=== PATIENT | female | born 1980 | race Caucasian/White ===

== ENCOUNTER 2018-10-15 20:14 | Inpatient (IN) | payer BC ==
[~2018-10-15] VITALS: Ht 157.5 cm; Wt 62.1 kg
[2018-10-15 20:27] VITALS: BP_SYST 118
[2018-10-15 21:06] LABS: BASOPHILS # (AUTO) 0.1 K/uL (0.0-0.2); BASOPHILS % (AUTO) 0.5 % (0.0-2.0); EOSINOPHILS # (AUTO) 0.1 K/uL (0.0-0.4); EOSINOPHILS % (AUTO) 0.5 % (0.0-4.0); HEMATOCRIT 39.9 % (36-48); HEMOGLOBIN 13.2 g/dL (12.0-16.0); LYMPHOCYTES # (AUTO) 3.9 K/uL (1.0-5.5); LYMPHOCYTES % (AUTO) 31.2 % (20.5-51.5); MEAN CORPUSCULAR HEMOGLOBIN 32 pg (27-31); MEAN CORPUSCULAR HGB CONC 33 % (32-36); MEAN CORPUSCULAR VOLUME 96 fL (79.0-98.0); MONOCYTES # (AUTO) 1.2 K/uL (0.0-1.0); MONOCYTES % (AUTO) 9.2 % (1.7-9.3); NEUTROPHILS # (AUTO) 7.4 K/uL (1.8-7.7); NEUTROPHILS % (AUTO) 58.6 % (40.0-70.0); PLATELET COUNT (AUTO) 325 K/uL (130-430); RED BLOOD CELL COUNT(AUTO) 4.17 MIL/uL (4.2-6.2); RED CELL DISTRIBUTION WIDTH 13.9 % (9.0-15.0); WHITE BLOOD COUNT (AUTO) 12.6 K/uL (4.8-10.8)
[2018-10-15 21:15] LABS: CALCIUM 8.8 mg/dL (8.4-11.0); CREATININE 0.82 mg/dL (0.55-1.30); POTASSIUM 3.1 mmol/L (3.5-5.1)
[2018-10-15 21:20] LABS: ALBUMIN 3.8 g/dL (3.4-4.8); TOTAL BILIRUBIN 0.6 mg/dL (0.0-1.0)
[2018-10-15] MEDS ORDERED: ONDANSETRON HCL 4 MG/2 ML VIAL IVP ONE (22:00)
[2018-10-15] MEDS ORDERED: NACL 0.9% 1,000 ML IV ONE (22:00)
[2018-10-15 22:41] LABS: BILIRUBIN,URINE NEGATIVE (NEGATIVE); BLOOD, URINE 3+ (NEGATIVE); CLARITY/URINE CLOUDY (CLEAR); COLOR,URINE YELLOW (YELLOW); GLUCOSE,URINE NEGATIVE (NEGATIVE); KETONES,URINE 1+ (NEGATIVE); LEUKOCYTE ESTERASE ,URINE 3+ (NEGATIVE); NITRITE, URINE POSITIVE (NEGATIVE); PH,URINE 8.5 (5.0-8.0); PROTEIN URINE 3+ (NEGATIVE)
[2018-10-15 22:46] LABS: BACTERIA,URINE MANY /HPF (None Seen); MUCUS,URINE 1+ /LPF (None Seen); RBC,URINE 80-100 /HPF (0-3); WBC,URINE 80-100 /HPF (0-3); YEAST,URINE Few /HPF (None Seen)
[2018-10-15] MEDS ORDERED: cefTRIAXone 1 GM IVPB PREMIX 50 ML IV ONE (23:15)
[2018-10-15] MEDS ORDERED: KETOROLAC TROMETHAMINE 15 MG VIAL IVP ONE (23:15)
[2018-10-15] MEDS ORDERED: ESCI10TA PO (23:46)
[2018-10-15] MEDS ORDERED: OMEP20TA20 PO (23:46)
[2018-10-16] VITALS (7 sets, daily range): BP systolic 105–132
[2018-10-16] MEDS ORDERED: NACL 0.9% 1,000 ML IV ONE
[2018-10-16] MEDS ORDERED: ACETAMINOPHEN 650 MG/20.3 ML UDC PO PRN (00:15)
[2018-10-16] MEDS ORDERED: MORPHINE 4 MG/ML INJ. SYRINGE IVP ONE (00:15)
[2018-10-16] MEDS ORDERED: ONDANSETRON HCL 4 MG/2 ML VIAL IVP PRN (00:15)
[2018-10-16] MEDS ORDERED: KETOROLAC TROMETHAMINE 15 MG VIAL IVP PRN (00:15)
[2018-10-16] MEDS ORDERED: cefTRIAXone 1 GM in D5W 50 ML IV SCH ×2 (01:00→21:00)
[2018-10-16] MEDS: NACL 0.9% 1,000 ML IV SCH ×3 (02:07→17:30)
[2018-10-16] MEDS ORDERED: TAMSULOSIN HCL 0.4 MG CAP PO SCH (09:00)
[2018-10-16] MEDS ORDERED: LEVOFLOXACIN 500 MG/D5W 100 ML IV SCH (09:00)
[2018-10-16] MEDS ORDERED: PANTOPRAZOLE SODIUM 40 MG TAB PO ONE (11:45)
[2018-10-16] MEDS ORDERED: CITALOPRAM HYDROBROMIDE 20 MG TABLET PO ONE (11:45)
[2018-10-16] MEDS: PIPERACILLIN/TAZO 3.375/DEX-IS 50 ML IV SCH ×3 (11:47→23:34)
[2018-10-16] MEDS ORDERED: ESCITALOPRAM 10 MG PO ONE (12:30)
[2018-10-17] MEDS: NACL 0.9% 1,000 ML IV SCH ×2 (04:23→17:10)
[2018-10-17] MEDS: PIPERACILLIN/TAZO 3.375/DEX-IS 50 ML IV SCH ×3 (05:22→17:10)
[2018-10-17 08:08] LABS: BASOPHILS % (AUTO) 0.8 % (0.0-2.0); EOSINOPHILS # (AUTO) 0.1 K/uL (0.0-0.4); EOSINOPHILS % (AUTO) 2.6 % (0.0-4.0); HEMOGLOBIN 11.2 g/dL (12.0-16.0); LYMPHOCYTES # (AUTO) 2.2 K/uL (1.0-5.5); LYMPHOCYTES % (AUTO) 43.6 % (20.5-51.5); MEAN CORPUSCULAR HEMOGLOBIN 32 pg (27-31); MEAN CORPUSCULAR HGB CONC 33 % (32-36); MEAN CORPUSCULAR VOLUME 97 fL (79.0-98.0); MONOCYTES # (AUTO) 0.5 K/uL (0.0-1.0); MONOCYTES % (AUTO) 9.5 % (1.7-9.3); NEUTROPHILS # (AUTO) 2.2 K/uL (1.8-7.7); NEUTROPHILS % (AUTO) 43.5 % (40.0-70.0); PLATELET COUNT (AUTO) 261 K/uL (130-430); WHITE BLOOD COUNT (AUTO) 5.1 K/uL (4.8-10.8)
[2018-10-17 08:17] VITALS: BP_SYST 113
[2018-10-17] MEDS: PANTOPRAZOLE SODIUM 40 MG TAB PO SCH (08:29)
[2018-10-17 08:30] LABS: ALBUMIN 2.7 g/dL (3.4-4.8); CREATININE 0.61 mg/dL (0.55-1.30); POTASSIUM 3.7 mmol/L (3.5-5.1); TOTAL BILIRUBIN 0.4 mg/dL (0.0-1.0)
[2018-10-17] MEDS: ESCITALOPRAM 10 MG PO SCH (08:30)
[2018-10-17 08:39] LABS: CALCIUM 8.4 mg/dL (8.4-11.0)
[2018-10-17 12:06] VITALS: BP_SYST 113
[2018-10-17 16:10] VITALS: BP_SYST 110
[2018-10-17] MEDS ORDERED: BISACODYL 5 MG TABLET.DR (DULCOLAX) PO PRN (19:30)
[2018-10-17] MEDS: DOCUSATE SODIUM 250 MG CAPSULE PO SCH (20:03)
[2018-10-17 20:57] VITALS: BP_SYST 119
[2018-10-17 23:17] VITALS: BP_SYST 119
[2018-10-18] MEDS: PIPERACILLIN/TAZO 3.375/DEX-IS 50 ML IV SCH ×4 (01:03→17:45)
[2018-10-18] MEDS: NACL 0.9% 1,000 ML IV SCH ×3 (04:42→13:49)
[2018-10-18 08:20] VITALS: BP_SYST 115
[2018-10-18] MEDS: PANTOPRAZOLE SODIUM 40 MG TAB PO SCH (08:30)
[2018-10-18] MEDS: DOCUSATE SODIUM 250 MG CAPSULE PO SCH ×2 (08:31→20:14)
[2018-10-18] MEDS: ESCITALOPRAM 10 MG PO SCH (08:31)
[2018-10-18 11:24] VITALS: BP_SYST 105
[2018-10-18 15:51] VITALS: BP_SYST 107
[2018-10-18 20:15] VITALS: BP_SYST 107
[2018-10-19 00:09] VITALS: BP_SYST 115
[2018-10-19] MEDS: PIPERACILLIN/TAZO 3.375/DEX-IS 50 ML IV SCH ×2 (00:11→05:13)
[2018-10-19] MEDS: NACL 0.9% 1,000 ML IV SCH (00:11)
[2018-10-19 08:09] VITALS: BP_SYST 124
[2018-10-19] MEDS: DOCUSATE SODIUM 250 MG CAPSULE PO SCH (08:14)
[2018-10-19] MEDS: PANTOPRAZOLE SODIUM 40 MG TAB PO SCH (08:17)
[2018-10-19] MEDS: ESCITALOPRAM 10 MG PO SCH (08:17)
[2018-10-19 11:32] VITALS: BP_SYST 124
[2018-10-19] MEDS ORDERED: CEPH-568 PO (11:46)
[2018-10-19] MEDS ORDERED: L.RH1CAP PO (11:46)
[2018-10-19 12:33] VITALS: BP_SYST 101
== END 2018-10-19 13:10 | disposition home or self-care (01) | DRG 872 ==
LOC: SED 20:14 → SMU 10-16 00:07
PROVIDERS: ADMIT Internal Medicine; ATTEND Internal Medicine
DX: A41.9 Sepsis, unspecified organism (principal); N13.6 Pyonephrosis; D25.9 Leiomyoma of uterus, unspecified; N80.9 Endometriosis, unspecified; F32.9 Major depressive disorder, single episode, unspecified; Z87.440 Personal history of urinary (tract) infections; Z90.710 Acquired absence of both cervix and uterus; Z79.899 Other long term (current) drug therapy
CPT/HCPCS: 36415; 76770; 80053; 81000-TC; 83605; 85025; 87086; 87186-TC; 87230-TC; 96361; 96365; 96375; 99285; J0696; J1885; J1956; J2270; J2405; J2543; J7030; J7060